=== PATIENT | female | born 1990 | race Caucasian/White ===

== ENCOUNTER 2019-02-28 06:33 | Emergency (ER) | payer BC, MEDICAID ==
[~2019-02-28] VITALS: Ht 170 cm; Wt 90.9 kg
[~2019-02-28 06:33] MED LIST: AMOX500C2 PO; HYDR1TAB PO; SULF1TAB38 PO
--- NOTE | 2019-02-28 07:07 | ED GU-Female ---
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 Nursing Sepsis Screen: No Definite Risk Source: patient Exam Limitations: no limitations History of Present Illness Date Seen by Provider: Feb 28, 2019 Time Seen by Provider: 06:45 Initial Comments Here with report of that she still has tampon inside. States that she did not remove it and she did not notice that it fell out. She is concerned that it is still in her. She is at the end of her menstrual cycle and has very light bleeding currently but denies other problems. Timing/Duration: this morning Severity/Quality: mild Location: vaginal Radiation: none Associated Symptoms: No dysuria, No nausea/vomiting, No urinary frequency Allergies and Home Medications Home Medications Amoxicillin 500 Mg Capsule, 1 EACH PO TID Prescribed by: GALEN TANG on 01/15/09 1307 Hydrocodone Bit/Acetaminophen 1 Each Tablet, 1-2 EACH PO Q4HR PRN Prescribed by: GALEN TANG on 01/15/09 1307 Trimethoprim/Sulfamethoxazole 1 Ea Tablet, 1 EA PO BID Prescribed by: GALEN TANG on 05/07/092056 Patient Home Medication List Home Medication List Reviewed: Yes Review of Systems Review of Systems Constitutional: see HPI; No chills, No fever Respiratory: no symptoms reported Cardiovascular: no symptoms reported Genitourinary: see HPI Past Tndzwgc-Meobnd-Essqns Hx Past Med/Social Hx: Reviewed Nursing Past Med/Soc Hx Patient Social History Alcohol Use: Past History Recreational Drug Use: No Smoking Status: Current Everyday Smoker Type Used: Cigarettes Recent Foreign Travel: No Contact w/Someone Who Travel: No Recent Infectious Disease Expo: No Recent Hopitalizations: No Physical Abuse: No Sexual Abuse: No Mistreated: No Fear: No Seasonal Allergies Seasonal Allergies: No Past Medical History Surgeries: No Respiratory: No Cardiac: No Neurological: No Genitourinary: No Gastrointestinal: No Musculoskeletal: No Endocrine: No HEENT: No Cancer: No Psychosocial: No Integumentary: No Blood Disorders: No Family Medical History Reviewed Nursing Family Hx Physical Exam Vital Signs Vital Signs - First Documented 02/28/19 06:37 Temp 36.5 Pulse 77 Resp 20 B/P (MAP) 125/79 (94) Capillary Refill : Less Than 3 Seconds Height, Weight, BMI Height: '" Weight: lbs. oz. kg; 31.00 BMI Method: General Appearance: WD/WN, no apparent distress Cardiovascular: regular rate, rhythm, no murmur Respiratory: lungs clear, normal breath sounds Gastrointestinal: non tender, soft Pelvic: normal external exam, no cerv. motion tender, no masses; No discharge, No lesions; vaginal bleeding (very mild), other (no foreign body noted or found.) Extremities: non-tender, normal inspection Neurologic/Psychiatric: alert, oriented x 3 Skin: normal color, warm/dry Progress/Results/Core Measures Suspected Sepsis Recent Fever Within 48 Hours: No Infection Criteria Present: None New/Unexplained Altered Menta: No Sepsis Screen: No Definite Risk SIRS Temperature: Pulse: 77 Respiratory Rate: 20 Blood Pressure 125 /79 Mean: 94 Results/Orders Vital Signs/I&O 02/28/19 06:37 Temp 36.5 Pulse 77 Resp 20 B/P (MAP) 125/79 (94) Capillary Refill : Less Than 3 Seconds Blood Pressure Mean: 94 POS Progress Note : Progress Note Seen and evaluated. Pelvic exam done. No foreign body found. Discharged home with return precautions. Patient verbalize understanding instructions and agreement with plan. Departure Impression Primary Impression: Visit for pelvic exam Disposition: 01 HOME, SELF-CARE Condition: Stable Departure-Patient Inst. Decision time for Depature: 07:11 Referrals: NO,LOCAL PHYSICIAN (PCP) Primary Care Physician [facility] Patient Instructions: Acute Pelvic Pain (DC) Add. Discharge Instructions: All discharge instructions reviewed with patient and/or family. Voiced understanding. Is very important that you follow-up with someone for women's health. You do need annual women's health exam or at least an evaluation to determine how often you would require the exam. Return for worse pain, persistent bleeding, weakness, difficulty with urination or other concerns as needed. TREMAINE GROVER MD Feb 28, 2019 07:07 POS
[2019-02-28 07:19] VITALS: BP 125/79
== END 2019-02-28 07:19 | disposition home or self-care (01) ==
LOC: EDUNIT# 06:33 → ER 06:35
DX: N93.9 Abnormal uterine and vaginal bleeding, unspecified (principal); F17.210 Nicotine dependence, cigarettes, uncomplicated
CPT/HCPCS: 99282

== ENCOUNTER 2019-11-11 19:55 | Emergency (ER) | payer MEDICAID ==
[~2019-11-11] VITALS: Ht 170.2 cm; Wt 95.2 kg
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
--- NOTE | 2019-11-11 20:18 | ED GU-Female ---
General Chief Complaint: Female Reproductive Stated Complaint: 12 WKS PREG - LEAKING FLUID Source: patient Exam Limitations: no limitations History of Present Illness Date Seen by Provider: Nov 11, 2019 Time Seen by Provider: 20:16 Initial Comments To ER by private vehicle with reports of leakage of clear vaginal fluid since yesterday. This occurs even at rest. 12 weeks gestation, [id number]. She states this fluid is not mucousy, just water consistency. Notices a wet spot in the chair upon standing. Timing/Duration: constant Severity/Quality: moderate Location: unknown Radiation: none Activities at Onset: none Prior Genitourinary Problems: none Associated Symptoms: denies symptoms Allergies and Home Medications Allergies Coded Allergies: sulfamethoxazole (Verified Allergy, Unknown, 11/11/19) trimethoprim (Verified Allergy, Unknown, 11/11/19) Home Medications Amoxicillin 500 Mg Capsule, 1 EACH PO TID Prescribed by: GALEN TANG on 01/15/09 130 Hydrocodone Bit/Acetaminophen 1 Each Tablet, 1-2 EACH PO Q4HR PRN Prescribed by: GALEN TANG on 01/15/09 1307 Trimethoprim/Sulfamethoxazole 1 Ea Tablet, 1 EA PO BID Prescribed by: GALEN TANG on 05/07/092056 Patient Home Medication List Home Medication List Reviewed: Yes Review of Systems Review of Systems Constitutional: see HPI; No chills, No fever EENTM: see HPI Respiratory: no symptoms reported Cardiovascular: no symptoms reported Genitourinary: no symptoms reported Musculoskeletal: no symptoms reported Skin: no symptoms reported Psychiatric/Neurological: No Symptoms Reported Endocrine: No Symptoms Reported Hematologic/Lymphatic: No Symptoms Reported Past Elcrrsx-Tuztkr-Xnjgux Hx Patient Social History Alcohol Use: Denies Use Recreational Drug Use: No Smoking Status: Former Smoker Type Used: Cigarettes Recent Foreign Travel: No Contact w/Someone Who Travel: No Recent Hopitalizations: No Immunizations Up To Date Tetanus Booster (TDap): Unknown PED Vaccines UTD: Yes Seasonal Allergies Seasonal Allergies: No Past Medical History Surgeries: No Respiratory: No Cardiac: No Neurological: No Genitourinary: No Gastrointestinal: No Musculoskeletal: No Endocrine: No HEENT: No Cancer: No Psychosocial: No Integumentary: No Blood Disorders: No Physical Exam Vital Signs Vital Signs - First Documented 11/11/19 20:01 Pulse 92 Resp 15 B/P (MAP) 116/72 (87) Pulse Ox 97 O2 Delivery Room Air Capillary Refill : Height, Weight, BMI Height: '" Weight: lbs. oz. kg; 31.00 BMI Method: General Appearance: WD/WN, no apparent distress HEENT: PERRL/EOMI, normal ENT inspection Respiratory: normal breath sounds, no respiratory distress, no accessory muscle use Gastrointestinal: normal bowel sounds, non tender, soft Pelvic: other (pelvic with molly rn at bedside. no cmt, no obvious discharge. ) Extremities: normal range of motion, non-tender Neurologic/Psychiatric: alert, normal mood/affect, oriented x 3 Skin: normal color, warm/dry Progress/Results/Core Measures Suspected Sepsis SIRS Temperature: Pulse: Respiratory Rate: Laboratory Tests 11/11/19 20:35: White Blood Count 10.4 Blood Pressure / Mean: Laboratory Tests 11/11/19 20:35: Platelet Count 288 Results/Orders Lab Results Laboratory Tests Test 11/11/19 20:10 11/11/19 20:24 11/11/19 20:35 Range/Units Urine Color YELLOW Urine Clarity CLEAR Urine pH 6.5 5-9 Urine Specific [place] 1.025 H 1.016-1.022 Urine Protein NEGATIVE NEGATIVE Urine Glucose (UA) NEGATIVE NEGATIVE Urine Ketones NEGATIVE NEGATIVE Urine Nitrite NEGATIVE NEGATIVE Urine Bilirubin NEGATIVE NEGATIVE Urine Urobilinogen 0.2 < = 1.0 MG/DL Urine Leukocyte Esterase NEGATIVE NEGATIVE Urine RBC (Auto) NEGATIVE NEGATIVE Urine RBC NONE /HPF Urine WBC 5-10 H /HPF Urine Squamous Epithelial Cells 25-50 H /HPF Urine Crystals NONE /LPF Urine Bacteria LARGE H /HPF Urine Casts NONE /LPF Urine Mucus NEGATIVE /LPF Urine Culture Indicated NO White Blood Count 10.4 4.3-11.0 10^3/uL Red Blood Count 4.15 L 4.35-5.85 10^6/uL Hemoglobin 12.6 11.5-16.0 G/DL Hematocrit 36 35-52 % Mean Corpuscular Volume 87 80-99 FL Mean Corpuscular Hemoglobin 30 25-34 PG Mean Corpuscular Hemoglobin Concent 35 32-36 G/DL Red Cell Distribution Width 13.0 10.0-14.5 % Platelet Count 288 130-400 10^3/uL Mean Platelet Volume 10.7 H 7.4-10.4 FL Neutrophils (%) (Auto) 78 H 42-75 % Lymphocytes (%) (Auto) 16 12-44 % Monocytes (%) (Auto) 5 0-12 % Eosinophils (%) (Auto) 1 0-10 % Basophils (%) (Auto) 0 0-10 % Neutrophils # (Auto) 8.1 H 1.8-7.8 X 10^3 Lymphocytes # (Auto) 1.7 1.0-4.0 X 10^3 Monocytes # (Auto) 0.5 0.0-1.0 X 10^3 Eosinophils # (Auto) 0.1 0.0-0.3 10^3/uL Basophils # (Auto) 0.0 0.0-0.1 10^3/uL My Orders Orders - KAMALJIT JACOBO APRN Cbc With Automated Diff (11/11/19 20:13) Abo Rh Type (11/11/19 20:13) Hcg,Quantitative (11/11/19 20:13) Ua Culture If Indicated (11/11/19 20:13) Wet Prep (11/11/19 20:13) Neisseria Gonorrhea Swab (11/11/19 20:13) Genital Culture (11/11/19 20:13) Chlamydia Trachomatis Swab (11/11/19 20:13) Vital Signs/I&O 11/11/19 20:01 Pulse 92 Resp 15 B/P (MAP) 116/72 (87) Pulse Ox 97 O2 Delivery Room Air Capillary Refill : Departure Communication (Admissions) bedside US done by Dr Lancaster showing gestational age 12 4/7 by crown rump length, HR 150, positive movement. The nitrazine swab done by me during pelvic exam was negative. Impression Primary Impression: UTI (urinary tract infection) Additional Impression: Vaginal discharge Disposition: HOME, SELF-CARE Condition: Stable Departure-Patient Inst. Decision time for Depature: 20:59 Referrals: NO,LOCAL PHYSICIAN (PCP/Family) Primary Care Physician Patient Instructions: Vaginal Discharge in Adults, Urinary Tract Infections in Adults Add. Discharge Instructions: 1. Follow-up with Dr. Jaramillo next week. Antibiotics as directed. Return to ER for any concerns. All discharge instructions reviewed with patient and/or family. Voiced understanding. Scripts Cefuroxime Axetil (Cefuroxime) 250 Mg Tablet 250 MG PO BID, #10 TAB Prov: KAMALJIT JACOBO APRN 11/11/19 KAMALJIT JACOBO APRN Nov 11, 2019 20:18
[2019-11-11 20:23] LABS: BILIRUBIN,URINE NEGATIVE (NEGATIVE); CLARITY,URINE CLEAR; COLOR,URINE YELLOW; GLUCOSE, URINE (UA) NEGATIVE (NEGATIVE); KETONES,URINE NEGATIVE (NEGATIVE); LEUKOCYTE ESTERASE ,URINE NEGATIVE (NEGATIVE); NITRITE,URINE NEGATIVE (NEGATIVE); PH,URINE 6.5 (5-9); PROTEIN,URINE NEGATIVE (NEGATIVE)
[2019-11-11 20:35] LABS: BACTERIA,URINE LARGE /HPF; SQUAMOUS EPITHELIAL CELL,UR 25-50 /HPF
[2019-11-11 20:41] LABS: BASOPHILS % (AUTO) 0 % (0-10); EOSINOPHILS # (AUTO) 0.1 10^3/uL (0.0-0.3); EOSINOPHILS % (AUTO) 1 % (0-10); HEMATOCRIT 36 % (35-52); HEMOGLOBIN 12.6 G/DL (11.5-16.0); LYMPHOCYTES # (AUTO) 1.7 X 10^3 (1.0-4.0); LYMPHOCYTES % (AUTO) 16 % (12-44); MEAN CORPUSCULAR HEMOGLOBIN 30 PG (25-34); MEAN CORPUSCULAR HGB CONC 35 G/DL (32-36); MEAN CORPUSCULAR VOLUME 87 FL (80-99); MEAN PLATELET VOLUME 10.7 FL (7.4-10.4); MONOCYTES # (AUTO) 0.5 X 10^3 (0.0-1.0); MONOCYTES % (AUTO) 5 % (0-12); NEUTROPHILS # (AUTO) 8.1 X 10^3 (1.8-7.8); NEUTROPHILS % (AUTO) 78 % (42-75); PLATELET COUNT 288 10^3/uL (130-400); WHITE BLOOD COUNT 10.4 10^3/uL (4.3-11.0)
[2019-11-11] MEDS ORDERED: CEFU250T80 PO (21:00)
[2019-11-11 21:49] VITALS: BP 115/75
== END 2019-11-11 21:49 | disposition home or self-care (01) ==
LOC: EDUNIT# 19:55 → ER 19:57
DX: O23.41 Unspecified infection of urinary tract in pregnancy, first trimester (principal); O99.89 Other specified diseases and conditions complicating pregnancy, childbirth and the puerperium; N89.8 Other specified noninflammatory disorders of vagina; Z3A.12 12 weeks gestation of pregnancy; Z88.2 Allergy status to sulfonamides; Z88.1 Allergy status to other antibiotic agents; Z87.891 Personal history of nicotine dependence
CPT/HCPCS: 36415; 81000; 84702; 85025; 86900; 86901; 87070; 87205; 87210; 87491; 87591

== ENCOUNTER 2020-02-14 15:51 | Observation (INO) | payer MEDICAID ==
[~2020-02-14] VITALS: Ht 170.2 cm; Wt 97.3 kg
[~2020-02-14 15:51] MED LIST changes: +CEFU250T80 PO
[2020-02-14] MEDS ORDERED: ONDANSETRON 4 MG/2 ML (SDV) Z0FRAN IV PRN (16:30)
[2020-02-14 17:18] VITALS: BP 126/60
--- NOTE | 2020-02-14 17:18 | NUR ---
MAYLIN SAUNDERS presented to unit via cart from ED,with c/o N/V/D, Fever, SOA. MAYLIN SAUNDERS weighed, gowned, voided, and to bed. EFHM and TOCO applied, VS taken. MAYLIN SAUNDERS oriented to bed controls, call light, TV, heat, and A/C controls.
--- NOTE | 2020-02-14 17:44 | NUR ---
FHT Doppler at 155-160 bpm. +FM heard.
[2020-02-14] MEDS: LACTATED RINGERS 1,000 ML IV SCH (17:53)
[2020-02-14 18:20] LABS: BASOPHILS % (AUTO) 0 % (0-10); EOSINOPHILS % (AUTO) 0 % (0-10); HEMATOCRIT 29 % (35-52); HEMOGLOBIN 9.8 g/dL (11.5-16.0); LYMPHOCYTES # (AUTO) 0.5 10^3/uL (1.0-4.0); LYMPHOCYTES % (AUTO) 4 % (12-44); MEAN CORPUSCULAR HEMOGLOBIN 30 pg (25-34); MEAN CORPUSCULAR HGB CONC 33 g/dL (32-36); MEAN CORPUSCULAR VOLUME 91 fL (80-99); MEAN PLATELET VOLUME 11.3 fL (9.0-12.2); MONOCYTES # (AUTO) 0.7 10^3/uL (0.0-1.0); MONOCYTES % (AUTO) 5 % (0-12); NEUTROPHILS # (AUTO) 11.7 10^3/uL (1.8-7.8); NEUTROPHILS % (AUTO) 91 % (42-75); PLATELET COUNT 231 10^3/uL (130-400); WHITE BLOOD COUNT 12.9 10^3/uL (4.3-11.0)
[2020-02-14 18:32] LABS: PROTHROMBIN TIME PATIENT 13.4 SEC (12.2-14.7)
[2020-02-14 18:32] LABS: ALBUMIN 3.4 GM/DL (3.2-4.5); CHLORIDE 102 MMOL/L (98-107); POTASSIUM 3.4 MMOL/L (3.6-5.0); SODIUM 135 MMOL/L (135-145)
[2020-02-14 18:33] LABS: CALCIUM 8.4 MG/DL (8.5-10.1)
[2020-02-14 18:35] LABS: GLUCOSE 87 MG/DL (70-105); TOTAL PROTEIN 6.3 GM/DL (6.4-8.2)
[2020-02-14 18:36] LABS: BILIRUBIN,TOTAL 0.4 MG/DL (0.1-1.0); CARBON DIOXIDE 20 MMOL/L (21-32)
[2020-02-14 18:38] LABS: ALKALINE PHOSPHATASE 57 U/L (40-136); CREATININE SERUM 0.46 MG/DL (0.60-1.30); GFR ESTIMATED > 60
[2020-02-14 18:39] LABS: BUN/CREATININE RATIO 7
[2020-02-14 18:41] LABS: ALANINE AMINOTRANSFERASE 25 U/L (0-55)
--- NOTE | 2020-02-14 19:35 | NUR ---
Report to Shar Onofre RN.
[2020-02-14 20:00] VITALS: BP 124/66
[2020-02-14] MEDS: ACETAMINOPHEN 325 MG TABLET PO PRN (20:18)
--- NOTE | 2020-02-14 20:20 | NUR ---
Pt sitting up in bed, coughing. pt c/o headache. assessment completed. Tylenol given. ice water and crackers provided. Pt denies any further needs. Will continue to monitor.
[2020-02-14 20:30] LABS: BILIRUBIN,URINE NEGATIVE (NEGATIVE); CLARITY,URINE CLEAR; COLOR,URINE YELLOW; GLUCOSE, URINE (UA) NEGATIVE (NEGATIVE); KETONES,URINE 2+ (NEGATIVE); LEUKOCYTE ESTERASE ,URINE TRACE (NEGATIVE); NITRITE,URINE NEGATIVE (NEGATIVE); PH,URINE 6.5 (5-9); PROTEIN,URINE NEGATIVE (NEGATIVE)
[2020-02-14 20:46] LABS: AMORPHOUS SEDIMENT,UR FEW AMOR URATES /LPF; BACTERIA,URINE FEW /HPF; WBC,URINE 0-2 /HPF
[2020-02-14 20:50] LABS: LYMPHOCYTES % (MANUAL) 3 %; MONOCYTES % (MANUAL) 3 %; NEUTROPHILS % (MANUAL) 94 %; RBC MORPH NORMAL
[2020-02-14 20:57] LABS: AMPHETAMINE SCREEN, URINE NEGATIVE (NEGATIVE); BARBITURATE SCREEN URINE NEGATIVE (NEGATIVE); BENZODIAZEPINES SCREEN URINE NEGATIVE (NEGATIVE); CANNABINOID SCREEN, URINE POSITIVE (NEGATIVE); COCAINE SCREEN URINE NEGATIVE (NEGATIVE); METHADONE STAT NEGATIVE (NEGATIVE); METHAMPHETAMINE SCREEN URINE S NEGATIVE (NEGATIVE); OPIATE SCREEN URINE NEGATIVE (NEGATIVE); OXYCODONE STAT NEGATIVE (NEGATIVE); PROPOXYPHENE STAT NEGATIVE (NEGATIVE); TRICYCLIC ANTIDEPRESSANTS SCRE NEGATIVE (NEGATIVE)
--- NOTE | 2020-02-14 21:00 | NUR ---
fht obtain. 167 left lower quadrant.
--- NOTE | 2020-02-14 22:00 | NUR ---
Rt has not arrived. Notified of rt order. States they will be around soon.
[2020-02-14] MEDS ORDERED: guaiFENesin/DM (ROBITUSSIN DM) 10 ML UDC PO PRN (23:15)
[2020-02-14] MEDS ORDERED: guaiFENesin (MUCINEX) 600 MG TAB PO ONE (23:17)
[2020-02-14] MEDS ORDERED: guaiFENesin/DM (ROBITUSSIN DM) 10 ML UDC ONE (23:27)
[2020-02-15] VITALS (7 sets, daily range): BP systolic 106–123; BP diastolic 59–93
--- NOTE | 2020-02-15 00:19 | NUR ---
PT C/O headache and chills. temp 99.7.
[2020-02-15] MEDS: ACETAMINOPHEN 325 MG TABLET PO PRN ×4 (00:23→21:27)
--- NOTE | 2020-02-15 01:08 | NUR ---
Called RT again concerning tx. States they will be up shortly
[2020-02-15] MEDS ORDERED: RX-ALBUTEROL INHALER (VENTOLIN HFA) 18 GM IH ONE (02:18)
[2020-02-15] MEDS ORDERED: RT-ALBUTEROL INHALER HFA (VENTOLIN HFA) 18 GM IH PRN ×2 (02:45→14:45)
--- NOTE | 2020-02-15 04:22 | NUR ---
Pt states she is starting to feel hot and c/o headache, tylenol given.
[2020-02-15] MEDS: LACTATED RINGERS 1,000 ML IV SCH (05:27)
--- NOTE | 2020-02-15 08:00 | NUR ---
pt reports movement this am
[2020-02-15 08:37] LABS: HEMOGLOBIN 10.8 g/dL (11.5-16.0); MEAN PLATELET VOLUME 11.1 fL (9.0-12.2); WHITE BLOOD COUNT 8.2 10^3/uL (4.3-11.0)
--- NOTE | 2020-02-15 08:40 | Diagnostic Imaging Report ---
INDICATION: Cough and fever. AP view of the chest is obtained. COMPARISON: No previous study is available for comparison at this time. FINDINGS: Heart size and pulmonary vasculature are within normal limits, and the lungs are clear, bilaterally. IMPRESSION: Unremarkable chest. Dictated by: Dictated on workstation # [id number]
[2020-02-15 08:58] LABS: BUN/CREATININE RATIO 4; CALCIUM 8.3 MG/DL (8.5-10.1); CARBON DIOXIDE 21 MMOL/L (21-32); CHLORIDE 104 MMOL/L (98-107); GFR ESTIMATED > 60; GLUCOSE 110 MG/DL (70-105); POTASSIUM 3.1 MMOL/L (3.6-5.0); SODIUM 135 MMOL/L (135-145)
--- NOTE | 2020-02-15 10:48 | NUR ---
Dr Messer to see patient and review plan of care.
--- NOTE | 2020-02-15 11:25 | NUR ---
pt resting/sleeping before vitals obtained. denies pain.
--- NOTE | 2020-02-15 16:40 | NUR ---
fresh ice to water pitcher at bedside. pt requests to shower. towels and gown to bathroom. pt denies further needs.
--- NOTE | 2020-02-15 17:55 | NUR ---
dinner tray to bedside table. pt reports having showered. linens changed. pt sitting up to eat dinner tray. denies needs.
--- NOTE | 2020-02-15 20:35 | History & Physical ---
HPI History of Present Illness: at 26 weeks presented to walk-in care at [facility] on 02/13 due to sore throat, cough, burning nose and throat, shortness of breath that started the night of 02/12. She had nausea and vomiting first and thought she might have eaten something wrong, but all the other symptoms shortly followed along with headache and diarrhea. She admits loss of sense of taste and smell as well. No known COVID exposure. She had seen Dr. Mcgregor for Ob care early in , and when he left [facility], she planned to move to [place] and was there for one visit and had US she reports that showed a baby girl. She returned to [place], but hadn't re-established ob care. In clinic, she had SpO2 of 88% initially but improved to 98% after she had a coughing fit. She was having significant conversational dyspnea as well and could not keep anything down and had rapid heart rate and dizziness, so she was directly admitted. She had negative rapid COVID (Vogel ID now) and negative influenza as well. She states she is feeling better today, but still vomited after breakfast. Albuterol is helping her breathing a lot and she has not required supplemental oxygen. Source: patient Date seen by provider: Feb 15, 2020 Time Seen by Provider: 10:30 Attending Physician Rosa Messer MD PCP No,Local Physician Consult Date of Admission Feb 14, 2020 at 17:09 Home Medications Home Medications Reviewed patient Home Medication Reconciliation performed by pharmacy medication reconciliations customer account technician and/or nursing. Patients Allergies have been reviewed. Allergies Coded Allergies: sulfamethoxazole (Verified Allergy, Unknown, 11/11/19) trimethoprim (Verified Allergy, Unknown, 11/11/19) [id number] Hx Patient Social History Alcohol Use: Denies Use Recreational Drug Use: No Smoking Status: Current Everyday Smoker Type Used: Cigarettes 2nd Hand Smoke Exposure: Yes Recent Hopitalizations: No Immunizations Up To Date Tetanus Booster (TDap): Unknown Past Medical History PMHx: Depression Anxiety PTSD Family Medical History Significant Family History: No Pertinent Family Hx Review of Systems ([facility]) Constitutional: fever, malaise EENTM: nose congestion, nose pain, throat pain Respiratory: cough, short of breath Cardiovascular: No chest pain Gastrointestinal: No abdominal pain, No constipation; diarrhea, nausea, vomiting Genitourinary: No dysuria Musculoskeletal: no symptoms reported Skin: no symptoms reported Psychiatric/Neurological: No Symptoms Reported Reviewed Test Results Reviewed Test Results Lab Laboratory Tests Test 02/14/20 07:59 02/14/20 18:05 02/14/20 18:20 02/14/20 20:15 Range/Units Prothrombin Time 13.4 12.2-14.7 SEC INR Comment 1.0 0.8-1.4 Activated Partial Thromboplast Time 30 24-35 SEC White Blood Count 12.9 H 4.3-11.0 10^3/uL Red Blood Count 3.23 L 3.80-5.11 10^6/uL Hemoglobin 9.8 L 11.5-16.0 g/dL Hematocrit 29 L 35-52 % Mean Corpuscular Volume 91 80-99 fL Mean Corpuscular Hemoglobin 30 25-34 pg Mean Corpuscular Hemoglobin Concent 33 32-36 g/dL Red Cell Distribution Width 13.5 10.0-14.5 % Platelet Count 231 130-400 10^3/uL Mean Platelet Volume 11.3 9.0-12.2 fL Immature Granulocyte % (Auto) 1 % Neutrophils (%) (Auto) 91 H 42-75 % Lymphocytes (%) (Auto) 4 L 12-44 % Monocytes (%) (Auto) 5 0-12 % Eosinophils (%) (Auto) 0 0-10 % Basophils (%) (Auto) 0 0-10 % Neutrophils # (Auto) 11.7 H 1.8-7.8 10^3/uL Lymphocytes # (Auto) 0.5 L 1.0-4.0 10^3/uL Monocytes # (Auto) 0.7 0.0-1.0 10^3/uL Eosinophils # (Auto) 0.0 0.0-0.3 10^3/uL Basophils # (Auto) 0.0 0.0-0.1 10^3/uL Immature Granulocyte # (Auto) 0.1 0.0-0.1 10^3/uL Neutrophils % (Manual) 94 % Lymphocytes % (Manual) 3 % Monocytes % (Manual) 3 % Blood Morphology Comment NORMAL Sodium Level 135 135-145 MMOL/L Potassium Level 3.4 L 3.6-5.0 MMOL/L Chloride Level 102 98-107 MMOL/L Carbon Dioxide Level 20 L 21-32 MMOL/L Anion Gap 13 5-14 MMOL/L Blood Urea Nitrogen 3 L 7-18 MG/DL Creatinine 0.46 L 0.60-1.30 MG/DL Estimat Glomerular Filtration Rate > 60 BUN/Creatinine Ratio 7 Glucose Level 87 70-105 MG/DL Lactic Acid Level 1.26 0.50-2.00 MMOL/L Calcium Level 8.4 L 8.5-10.1 MG/DL Corrected Calcium 8.9 8.5-10.1 MG/DL Total Bilirubin 0.4 0.1-1.0 MG/DL Aspartate Amino Transf (AST/SGOT) 30 5-34 U/L Alanine Aminotransferase (ALT/SGPT) 25 0-55 U/L Alkaline Phosphatase 57 40-136 U/L Lactate Dehydrogenase 140 125-220 U/L C-Reactive Protein High Sensitivity 1.75 H 0.00-0.50 MG/DL Total Protein 6.3 L 6.4-8.2 GM/DL Albumin 3.4 3.2-4.5 GM/DL Urine Color YELLOW Urine Clarity CLEAR Urine pH 6.5 5-9 Urine Specific [place] 1.015 L 1.016-1.022 Urine Protein NEGATIVE NEGATIVE Urine Glucose (UA) NEGATIVE NEGATIVE Urine Ketones 2+ H NEGATIVE Urine Nitrite NEGATIVE NEGATIVE Urine Bilirubin NEGATIVE NEGATIVE Urine Urobilinogen 0.2 < = 1.0 MG/DL Urine Leukocyte Esterase TRACE H NEGATIVE Urine RBC (Auto) NEGATIVE NEGATIVE Urine RBC NONE /HPF Urine WBC 0-2 /HPF Urine Crystals PRESENT H /LPF Urine Amorphous Sediment FEW TAVO URATES H /LPF Urine Bacteria FEW H /HPF Urine Casts NONE /LPF Urine Mucus NEGATIVE /LPF Urine Culture Indicated YES Urine Opiates Screen NEGATIVE NEGATIVE Urine Oxycodone Screen NEGATIVE NEGATIVE Urine Methadone Screen NEGATIVE NEGATIVE Urine Propoxyphene Screen NEGATIVE NEGATIVE Urine Barbiturates Screen NEGATIVE NEGATIVE Ur Tricyclic Antidepressants Screen NEGATIVE NEGATIVE Urine Phencyclidine Screen NEGATIVE NEGATIVE Urine Amphetamines Screen NEGATIVE NEGATIVE Urine Methamphetamines Screen NEGATIVE NEGATIVE Urine Benzodiazepines Screen NEGATIVE NEGATIVE Urine Cocaine Screen NEGATIVE NEGATIVE Urine Cannabinoids Screen POSITIVE H NEGATIVE Test 02/15/20 08:26 Range/Units White Blood Count 8.2 4.3-11.0 10^3/uL Red Blood Count 3.59 L 3.80-5.11 10^6/uL Hemoglobin 10.8 L 11.5-16.0 g/dL Hematocrit 32 L 35-52 % Mean Corpuscular Volume 90 80-99 fL Mean Corpuscular Hemoglobin 30 25-34 pg Mean Corpuscular Hemoglobin Concent 33 32-36 g/dL Red Cell Distribution Width 13.6 10.0-14.5 % Platelet Count 197 130-400 10^3/uL Mean Platelet Volume 11.1 9.0-12.2 fL Sodium Level 135 135-145 MMOL/L Potassium Level 3.1 L 3.6-5.0 MMOL/L Chloride Level 104 98-107 MMOL/L Carbon Dioxide Level 21 21-32 MMOL/L Anion Gap 10 5-14 MMOL/L Blood Urea Nitrogen 2 L 7-18 MG/DL Creatinine 0.50 L 0.60-1.30 MG/DL Estimat Glomerular Filtration Rate > 60 BUN/Creatinine Ratio 4 Glucose Level 110 H 70-105 MG/DL Calcium Level 8.3 L 8.5-10.1 MG/DL Radiology CXR 02/15/20 unremarkable Physical Exam-([facility]) Physical Exam Vital Signs VS - Last 72 Hours, by Label 02/14/20 02/14/20 02/14/20 02/14/20 17:18 17:18 17:59 20:00 Temp 37.3 37.3 38.1 Pulse 114 114 123 Resp 18 18 20 B/P (MAP) 124/66 (85) Pulse Ox 97 97 98 96 O2 Delivery Room Air Room Air Room Air Room Air 02/15/20 02/15/20 02/15/20 02/15/20 00:15 01:11 02:23 02:29 Temp 37.6 Pulse 101 96 Resp 20 B/P (MAP) 111/62 (78) Pulse Ox 95 93 96 O2 Delivery Room Air Room Air Room Air FiO2 100 02/15/20 02/15/20 02/15/20 02/15/20 04:22 07:49 07:56 11:36 Temp 37.4 36.2 37.0 Pulse 106 91 87 Resp 20 20 20 B/P (MAP) 123/61 (81) 110/93 (99) 110/59 (76) Pulse Ox 97 97 97 95 O2 Delivery Room Air Room Air Room Air Room Air 02/15/20 02/15/20 14:49 16:30 Temp 37.0 Pulse 89 Resp 18 B/P (MAP) 111/64 (80) Pulse Ox 94 97 O2 Delivery Room Air Room Air Capillary Refill : Less Than 3 Seconds General Appearance: WD/WN, other (appears mildly ill/uncomfortable) Respiratory: no respiratory distress, no accessory muscle use, other (mild ronchi throughout, significant improvement from yesterday) Cardiovascular: no murmur, tachycardia Gastrointestinal: normal bowel sounds, non tender Extremities: no pedal edema Neurologic/Psychiatric: alert, other (flat affect) Skin: normal color, warm/dry Assessment/Plan Assessment/Plan Admission Status: Observation (1) Fever Status: Acute Assessment & Plan: Suspect possible COVID19, PCR pending (rapid negative, but symptoms consistent), acetaminophen as needed. No evidence of UTI or pneumonia or uterine infection. Qualifiers: (2) Vomiting Status: Acute Assessment & Plan: Ondansetron as needed Qualifiers: (3) 26 weeks gestation of Status: Acute Assessment & Plan: Due to gestation and body habitus, unable to complete NST, continue to check heart tones each shift, normal so far. (4) Cough Status: Acute Assessment & Plan: Robitussin for symptoms. (5) Shortness of breath Status: Acute Assessment & Plan: Suspect viral lower respiratory infection, improved symptoms with albuterol, not requiring supplemental oxygen. Awaiting COVID results. ROSA MESSER MD Feb 15, 2020 20:34
[2020-02-15] MEDS ORDERED: ONDANSETRON 4 MG (ZOFRAN) ORAL DISSOLVE TAB PO PRN (20:45)
[2020-02-15] MEDS ORDERED: KCL 20 MEQ TAB (K-DUR) PO ONE (20:45)
--- NOTE | 2020-02-15 21:25 | NUR ---
To room for assessment. T 150. Fresh ice water given to pt. Pt denies pain or any needs at this time. Addendum: 02/15/20 at 2147 by GLADIS ROCK RN VSKathy
[2020-02-16 01:15] VITALS: BP 108/58
[2020-02-16] MEDS: ACETAMINOPHEN 325 MG TABLET PO PRN (01:15)
[2020-02-16 05:22] VITALS: BP 103/55
[2020-02-16 06:02] LABS: HEMOGLOBIN 10.6 g/dL (11.5-16.0); MEAN PLATELET VOLUME 11.2 fL (9.0-12.2); WHITE BLOOD COUNT 6.4 10^3/uL (4.3-11.0)
[2020-02-16 06:18] LABS: CHLORIDE 106 MMOL/L (98-107); POTASSIUM 3.4 MMOL/L (3.6-5.0); SODIUM 137 MMOL/L (135-145)
[2020-02-16 06:20] LABS: CALCIUM 8.2 MG/DL (8.5-10.1); GLUCOSE 79 MG/DL (70-105)
[2020-02-16 06:22] LABS: CARBON DIOXIDE 20 MMOL/L (21-32)
[2020-02-16 06:24] LABS: CREATININE SERUM 0.44 MG/DL (0.60-1.30); GFR ESTIMATED > 60
[2020-02-16 06:25] LABS: BUN/CREATININE RATIO 7
[2020-02-16] MEDS ORDERED: KCL 20 MEQ TAB (K-DUR) PO ONE (07:00)
--- NOTE | 2020-02-16 07:00 | NUR ---
Report from Robert baxter.
[2020-02-16] MEDS ORDERED: PREN-142 PO (07:02)
[2020-02-16] MEDS ORDERED: ONDA4TAB11 PO (07:05)
[2020-02-16] MEDS ORDERED: ALBU18HF2 IH (07:05)
[2020-02-16] MEDS ORDERED: GUAI5SYR PO (07:05)
--- NOTE | 2020-02-16 08:50 | NUR ---
Initial assessment completed, vss, see interventions for detailed assessments, plan of care reviewed with pt, no questions noted, pt reports feeling much better and requesting d/c home today. FHT dopplered at 127. Pt reports feeling movement. Will monitor closely.
[2020-02-16 08:54] VITALS: BP 115/65
--- NOTE | 2020-02-16 09:30 | NUR ---
MAYLIN SAUNDERS demonstrates understanding of discharge instructions and accurately returns instructions upon questioning. Copy of Post-Discharge Instructions given to pt. MAYLIN SAUNDERS is able to manage continuing needs after discharge. Patients belongings returned to .
--- NOTE | 2020-02-16 09:45 | NUR ---
Patient discharged from 3302-1 on 02/16/20 at 0945. MAYLIN SAUNDERS left floor via [ambulation], accompanied by [staff]. Pt taken home by care van. Will follow up with DR Messer in clinic in one week.
--- NOTE | 2020-02-16 10:53 | Discharge Summary ---
Discharge Summary Hospital Course Problems/Diagnosis: (1) Fever Status: Acute Assessment & Plan: Suspect possible COVID19, rapid and PCR negative, but symptoms consistent, maintained airborne precautions inpatient. Acetaminophen as needed. No evidence of UTI or pneumonia or uterine infection. Qualifiers: (2) Vomiting Status: Resolved Resolution Date/Time: 02/16/20 @ 10:51 Assessment & Plan: Ondansetron as needed Qualifiers: (3) 26 weeks gestation of Status: Acute Assessment & Plan: Due to gestation and body habitus, unable to complete NST, continue to check heart tones each shift, normal throughout stay. (4) Cough Status: Acute Assessment & Plan: Robitussin for symptoms. (5) Shortness of breath Status: Acute Assessment & Plan: Suspect viral lower respiratory infection, improved symptoms with albuterol, not requiring supplemental oxygen. Discharged with albuterol inhaler script. Hospital Course Date of Admission: Feb 14, 2020 at 17:09 Admission Diagnosis : Family Physician/Provider: [place],Local Physician Date of Discharge: 02/16/20 Discharge Diagnosis: See problem list Hospital Course: See problem list Labs and Pending Lab Test: Laboratory Tests 02/16/20 05:51: White Blood Count 6.4, Red Blood Count 3.52L, Hemoglobin 10.6L, Hematocrit 32L, Mean Corpuscular Volume 92, Mean Corpuscular Hemoglobin 30, Mean Corpuscular Hemoglobin Concent 33, Red Cell Distribution Width 13.8, Platelet Count 193, Mean Platelet Volume 11.2, Sodium Level 137, Potassium Level 3.4L, Chloride Level 106, Carbon Dioxide Level 20L, Anion Gap 11, Blood Urea Nitrogen 3L, Creatinine 0.44L, Estimat Glomerular Filtration Rate > 60, BUN/Creatinine Ratio 7, Glucose Level 79, Calcium Level 8.2L Microbiology 02/14/20 Urine Culture - Final, Complete >=3 Gram Positive Isolates 02/14/20 Blood Culture - Preliminary, Resulted No growth Home Meds Active Ondansetron Odt (Ondansetron) 4 Mg Tab.rapdis 4 Mg PO Q6H PRN Guaifenesin Dm Syrup (Guaifenesin/Dextromethorphan) 5 Ml Syrup 10 Ml PO Q4H PRN Ventolin Hfa (Albuterol Sulfate) 18 Gm Hfa.aer.ad 2 Puff IH Q4H PRN Reported Vitamin Tablet ( Vit No.124/Iron/FA) 1 Each Tablet 1 Each PO DA ELIZABETH Assessment/Pt DC Instructions Follow up with Dr. Messer in a week, someone from [facility] will call with an appointment time. Discharge Diet: No Restrictions Activity as Tolerated: Yes Discharge Physical Examination Allergies: Coded Allergies: sulfamethoxazole (Verified Allergy, Unknown, 11/11/19) trimethoprim (Verified Allergy, Unknown, 11/11/19) General Appearance: No Apparent Distress, WD/WN Respiratory: Lungs Clear, Normal Breath Sounds Cardiovascular: Regular Rate, Rhythm, No Murmur Skin: Normal Color, Warm/Dry Neurologic/Psychiatric: Alert, Normal Mood/Affect ROSA MESSER MD Feb 16, 2020 10:53
== END 2020-02-16 09:45 | disposition home or self-care (01) ==
LOC: LDRP 17:09 → UNDOADMOB 17:09 → LDRP 17:18 → UNDODISOB 02-16 09:45
PROVIDERS: ADMIT Family Medicine; ATTEND Family Medicine
DX: R50.9 Fever, unspecified (principal); R11.10 Vomiting, unspecified; R05 Cough; R06.02 Shortness of breath; F17.210 Nicotine dependence, cigarettes, uncomplicated; F41.9 Anxiety disorder, unspecified; F32.9 Major depressive disorder, single episode, unspecified; F43.10 Post-traumatic stress disorder, unspecified; Z20.828 Contact with and (suspected) exposure to other viral communicable diseases; Z88.2 Allergy status to sulfonamides; Z88.1 Allergy status to other antibiotic agents
CPT/HCPCS: 71045; 80048 ×2; 80053; 80306; 81000; 82728; 83605; 83615; 85007; 85027 ×3; 85610; 85730; 86141; 87040; 87077; 87088; 87185; 94640; 96361 ×2; 96374; G0378; G0379; U0002; 36415; 87635; 99211

== ENCOUNTER 2020-02-14 16:59 | Emergency (ER) | payer MEDICAID ==
--- NOTE | 2020-02-14 18:26 | NUR ---
PT TAKEN TO OB
== END 2020-02-14 17:20 | disposition other institution (70) ==
LOC: EDUNIT# 16:59 → ER 17:02
DX: R05 Cough (principal); R50.9 Fever, unspecified; Z20.828 Contact with and (suspected) exposure to other viral communicable diseases

== ENCOUNTER 2020-05-20 19:22 | Inpatient (IN) | payer MEDICAID ==
[~2020-05-20] VITALS: Ht 170 cm; Wt 101.0 kg
[~2020-05-20 19:22] MED LIST changes: +ALBU18HF2 IH; +GUAI5SYR PO; +ONDA4TAB11 PO; +PREN-142 PO
[2020-05-20 19:55] VITALS: BP 113/64
[2020-05-20 20:08] VITALS: BP 113/64
[2020-05-20] MEDS ORDERED: LACTATED RINGERS 1,000 ML IV ONE (20:15)
[2020-05-20] MEDS ORDERED: MISOPROSTOL 100 MCG (CYTOTEC) TAB PO ONE (20:15)
[2020-05-20] MEDS: D5 LR IV SOLUTION 1,000 ML IV SCH (20:33)
[2020-05-20 20:46] LABS: BASOPHILS % (AUTO) 0 % (0-10); EOSINOPHILS # (AUTO) 0.1 10^3/uL (0.0-0.3); EOSINOPHILS % (AUTO) 1 % (0-10); HEMATOCRIT 36 % (35-52); HEMOGLOBIN 11.8 g/dL (11.5-16.0); LYMPHOCYTES # (AUTO) 1.5 10^3/uL (1.0-4.0); LYMPHOCYTES % (AUTO) 14 % (12-44); MEAN CORPUSCULAR HEMOGLOBIN 29 pg (25-34); MEAN CORPUSCULAR HGB CONC 33 g/dL (32-36); MEAN CORPUSCULAR VOLUME 88 fL (80-99); MEAN PLATELET VOLUME 11.9 fL (9.0-12.2); MONOCYTES # (AUTO) 0.6 10^3/uL (0.0-1.0); MONOCYTES % (AUTO) 6 % (0-12); NEUTROPHILS # (AUTO) 8.7 10^3/uL (1.8-7.8); NEUTROPHILS % (AUTO) 79 % (42-75); PLATELET COUNT 273 10^3/uL (130-400)
[2020-05-20 20:54] LABS: BILIRUBIN,URINE NEGATIVE (NEGATIVE); CLARITY,URINE CLOUDY; COLOR,URINE YELLOW; GLUCOSE, URINE (UA) NEGATIVE (NEGATIVE); KETONES,URINE NEGATIVE (NEGATIVE); LEUKOCYTE ESTERASE ,URINE 1+ (NEGATIVE); NITRITE,URINE NEGATIVE (NEGATIVE); PROTEIN,URINE NEGATIVE (NEGATIVE)
[2020-05-20 21:03] LABS: BACTERIA,URINE LARGE /HPF; SQUAMOUS EPITHELIAL CELL,UR >50 /HPF; WBC,URINE 50-100 /HPF
[2020-05-20] MEDS ORDERED: ZOLPIDEM 5 MG (AMBIEN) TAB ONE (22:03)
[2020-05-20 22:15] VITALS: BP 111/59
[2020-05-20] MEDS ORDERED: ZOLPIDEM 5 MG (AMBIEN) TAB PO ONE (22:15)
[2020-05-20 23:15] VITALS: BP 111/65
[2020-05-21] VITALS (55 sets, daily range): BP systolic 87–134; BP diastolic 47–78
[2020-05-21] MEDS ORDERED: MISOPROSTOL 100 MCG (CYTOTEC) TAB PO SCH (00:15)
[2020-05-21] MEDS: D5 LR IV SOLUTION 1,000 ML IV SCH ×2 (03:39→11:43)
--- NOTE | 2020-05-21 06:44 | History & Physical-OB ---
OB - Chief Complaint & HPI Date/Time Date of Admission: Date of Admission: May 20, 2020 at 19:22 Date seen by a Provider: May 21, 2020 Time Seen by a Provider: 06:25 Chief Complaint/History OB-Reason for Admission/Chief: Induction of Labor Hx : 3 Hx Para: 2 Expected Date of Delivery: May 22, 2020 Gestational Age in Weeks: 39 Gestational Age in Days: 5 Admission Nurse Assessment Rev: Yes History of Labs GBS negative Allergies and Home Medications Allergies Coded Allergies: sulfamethoxazole (Verified Allergy, Unknown, 11/11/19) trimethoprim (Verified Allergy, Unknown, 11/11/19) Home Medications Albuterol Sulfate 18 Gm Hfa.aer.ad, 2 PUFF IH Q4H PRN for SHORTNESS OF BREATH Prescribed by: ROSA CASEY on 02/16/20 0705 Guaifenesin/Dextromethorphan 5 Ml Syrup, 10 ML PO Q4H PRN for COUGH Prescribed by: ROSA CASEY on 02/16/20 0705 Ondansetron 4 Mg Tab.rapdis, 4 MG PO Q6H PRN for NAUSEA/VOMITING-1ST LINE Prescribed by: ROSA CASEY on 02/16/20 0705 Vit No.124/Iron/FA 1 Each Tablet, 1 EACH PO DAILY, (Reported) Patient Home Medication List Home Medication List Reviewed: Yes OB - History Hx of Present Care: Yes Ultrasounds: Normal mid trimester US Obstetrical Complications: None Medical Complications: None Patient Past Medical History PMHx: Depression Anxiety PTSD Social History/Family History 2nd Hand Smoke Exposure: Yes Immunizations Hepatitis B: Yes Tetanus Booster (TDap): Unknown OB - Admission Exam Physical Exam Vitals: Vital Signs 05/20/20 05/21/20 05/21/20 20:08 01:15 05:15 Temp 36.3 Pulse 96 Resp 18 B/P (MAP) 102/62 (75) Pulse Ox 98 O2 Delivery Room Air HEENT: Moist Membranes Heart: Rhythm Normal Lungs: Clear Abdomen: Gravid Cervical Dilatation: 1cm Effacement: 50% Station: Ballotable Membranes: Intact Heart Rate: 140's Accelerations: Accelerations Present Decelerations: No Decelerations Short Term Variability: Present Staff Sonographer Variability: Average (6-25) Contractions on Admission: >10 Minutes Apart (on admission) Intensity: Mild Venegas Scoring Tool (Modified) Dilation (cm): 1-2cm (1) Effacement (%): 31-51% (1) Descent/Station: -3 (0) Cervix Consistency: Medium(1) Cervix Position: Posterior (0) Add 1 point for: Each previous vaginal delivery (1) Venegas Score: 5 Labs Laboratory Tests Test 05/20/20 20:30 05/20/20 20:40 Range/Units White Blood Count 11.0 4.3-11.0 10^3/uL Red Blood Count 4.03 3.80-5.11 10^6/uL Hemoglobin 11.8 11.5-16.0 g/dL Hematocrit 36 35-52 % Mean Corpuscular Volume 88 80-99 fL Mean Corpuscular Hemoglobin 29 25-34 pg Mean Corpuscular Hemoglobin Concent 33 32-36 g/dL Red Cell Distribution Width 14.1 10.0-14.5 % Platelet Count 273 130-400 10^3/uL Mean Platelet Volume 11.9 9.0-12.2 fL Immature Granulocyte % (Auto) 1 % Neutrophils (%) (Auto) 79 H 42-75 % Lymphocytes (%) (Auto) 14 12-44 % Monocytes (%) (Auto) 6 0-12 % Eosinophils (%) (Auto) 1 0-10 % Basophils (%) (Auto) 0 0-10 % Neutrophils # (Auto) 8.7 H 1.8-7.8 10^3/uL Lymphocytes # (Auto) 1.5 1.0-4.0 10^3/uL Monocytes # (Auto) 0.6 0.0-1.0 10^3/uL Eosinophils # (Auto) 0.1 0.0-0.3 10^3/uL Basophils # (Auto) 0.0 0.0-0.1 10^3/uL Immature Granulocyte # (Auto) 0.1 0.0-0.1 10^3/uL Urine Color YELLOW Urine Clarity CLOUDY Urine pH 6.0 5-9 Urine Specific [place] 1.025 H 1.016-1.022 Urine Protein NEGATIVE NEGATIVE Urine Glucose (UA) NEGATIVE NEGATIVE Urine Ketones NEGATIVE NEGATIVE Urine Nitrite NEGATIVE NEGATIVE Urine Bilirubin NEGATIVE NEGATIVE Urine Urobilinogen 0.2 < = 1.0 MG/DL Urine Leukocyte Esterase 1+ H NEGATIVE Urine RBC (Auto) NEGATIVE NEGATIVE Urine RBC NONE /HPF Urine WBC 50-100 H /HPF Urine Squamous Epithelial Cells >50 H /HPF Urine Crystals NONE /LPF Urine Bacteria LARGE H /HPF Urine Casts NONE /LPF Urine Mucus NEGATIVE /LPF Urine Culture Indicated YES OB - Assessment/Plan/Diagnosis Assessment Assessment: induction of labor (at 39w5d) Admission Dx IUP at 39w5d on admission Admission Status: Inpatient Order (span 2 midnights) Reason for Inpatient Admission: Induction of labor Plan Plan: Induction Induction Method: per Misoprostol Protocol Other Plan -she desires only IV pain meds -oxytocin as needed OBEY BAH MD May 21, 2020 06:44
[2020-05-21] MEDS ORDERED: OXYTOCIN PRE-MIX DRIP 500 ML IV SCH ×2 (06:45→17:15)
[2020-05-21] MEDS: BUTORPHANOL INJ 2 MG/ML (STADOL) VIAL IV PRN ×2 (09:47→11:45)
[2020-05-21] MEDS ORDERED: BUPIVACAINE 0.25% 30 ML (SENSORCAINE) VIAL ONE (13:33)
[2020-05-21] MEDS ORDERED: fentaNYL INJECTION 100 MCG/2 ML AMP ONE (13:33)
[2020-05-21] MEDS ORDERED: LIDOCAINE PF 2% 5 ML (XYLOCAINE) VIAL ONE (13:33)
[2020-05-21] MEDS ORDERED: fentaNYL 2 mcg/ml BUPIVA 0.125 100 ML ONE (13:35)
[2020-05-21] MEDS ORDERED: LACTATED RINGERS 1,000 ML IV ONE ×2 (13:45)
[2020-05-21] MEDS ORDERED: ONDANSETRON 4 MG/2 ML (SDV) Z0FRAN IV PRN (13:45)
[2020-05-21] MEDS ORDERED: EPIDURAL (fentaNYL 2 MCG/ML BUPIVA 0.125%)100 ML BAG EPI PRN (13:45)
[2020-05-21] MEDS ORDERED: fentaNYL INJECTION 100 MCG/2 ML AMP INJ ONE (13:45)
[2020-05-21] MEDS ORDERED: NALOXONE 0.4 MG/ML 1 ML (NARCAN) VIAL IV PRN (13:45)
--- NOTE | 2020-05-21 17:14 | OB Labor & Delivery Record ---
L&D History Date of Service Date of Service: May 21, 2020 History Expected Date of Delivery: May 22, 2020 Gestational Age in Weeks: 39 Hx : 3 Hx Para: 3 Complications Events: Routine care Operative Indications (Cesarea: N/A-Vaginal Delivery Intrapartal Events: None L&D Stage1 Stage One Onset of Labor - Date: May 21, 2020 Onset of Labor - Time: 06:30 Monitors and Tracing Monitor Mode: Internal Heart Rate: 130 Monitor Accelerations: Uniform Monitor Decelerations: None Station: -2 Fpc Variability: Average (6-10) Short Term Variability: Present Presentation: Vertex Vital Signs VS - Last 72 Hours, by Label 05/20/20 05/20/20 05/20/20 05/20/20 19:55 20:08 22:15 23:15 Temp 36.0 36.0 36.3 Pulse 102 102 91 77 Resp 18 18 18 18 B/P (MAP) 113/64 (80) 111/59 (76) 111/65 (80) Pulse Ox 98 98 O2 Delivery Room Air Room Air Room Air Room Air 05/21/20 05/21/20 05/21/20 05/21/20 01:15 02:15 03:15 04:15 Temp 36.3 Pulse 84 81 82 94 Resp 18 18 18 18 B/P (MAP) 92/53 (66) 87/50 (62) 87/47 (60) 110/74 (86) O2 Delivery Room Air Room Air Room Air Room Air 05/21/20 05/21/20 05/21/20 05/21/20 05:15 06:30 07:15 07:30 Temp 36.2 Pulse 96 88 85 86 Resp 18 18 18 18 B/P (MAP) 102/62 (75) 120/61 (80) 115/63 (80) 109/64 (79) O2 Delivery Room Air Room Air Room Air Room Air 05/21/20 05/21/20 05/21/20 05/21/20 07:45 08:00 08:15 08:30 B/P (MAP) O2 Delivery Room Air Room Air Room Air Room Air 05/21/20 05/21/20 05/21/20 05/21/20 08:45 09:00 09:15 09:30 Pulse 86 86 86 84 Resp 18 18 18 18 B/P (MAP) 116/61 (79) 117/74 (88) 116/66 (83) 116/66 (83) O2 Delivery Room Air Room Air Room Air Room Air 05/21/20 05/21/20 05/21/20 05/21/20 09:45 10:00 10:15 10:30 Temp 36.2 Pulse 89 91 96 86 Resp 18 18 18 18 B/P (MAP) 114/58 (76) 109/55 (73) 113/66 (82) 105/65 (78) O2 Delivery Room Air Room Air Room Air Room Air 05/21/20 05/21/20 05/21/20 05/21/20 10:45 11:00 11:15 11:30 Pulse 78 88 88 85 Resp 18 18 18 18 B/P (MAP) 105/56 (72) 91/56 (68) 98/60 (73) 99/57 (71) O2 Delivery Room Air Room Air Room Air Room Air 05/21/20 05/21/20 05/21/20 05/21/20 11:45 12:00 12:15 12:30 Pulse 90 85 84 97 Resp 18 18 18 18 B/P (MAP) 97/53 (68) 99/52 (68) 95/52 (66) 110/63 (79) O2 Delivery Room Air Room Air Room Air Room Air 05/21/20 05/21/20 05/21/20 05/21/20 12:45 13:00 13:15 13:30 Pulse 87 87 107 Resp 18 18 18 B/P (MAP) 106/63 (77) 109/53 (71) 126/78 (94) O2 Delivery Room Air Room Air Room Air Room Air 05/21/20 05/21/20 05/21/20 05/21/20 13:45 13:50 13:53 13:56 Pulse 84 101 97 99 Resp 18 18 18 18 B/P (MAP) 114/58 (76) 122/57 (78) 122/58 (79) 114/61 (78) Pulse Ox 96 99 99 O2 Delivery Room Air Room Air Room Air Room Air 05/21/20 05/21/20 05/21/20 05/21/20 13:59 14:00 14:06 14:08 Pulse 100 100 94 94 Resp 18 18 18 18 B/P (MAP) 115/62 (79) 115/62 (79) 119/56 (77) 115/66 (82) Pulse Ox 99 98 98 O2 Delivery Room Air Room Air Room Air Room Air 05/21/20 05/21/20 05/21/20 05/21/20 14:11 14:15 14:20 14:23 Pulse 103 103 107 116 Resp 18 18 18 18 B/P (MAP) 111/59 (76) 112/62 (79) 112/58 (76) 110/60 (77) Pulse Ox 98 97 97 O2 Delivery Room Air Room Air Room Air Room Air 05/21/20 05/21/20 14:30 14:45 Pulse 118 125 Resp 18 18 B/P (MAP) 88/56 (67) 104/67 (79) Pulse Ox 99 O2 Delivery Room Air Room Air Signs of Distress by FHT Signs of Distress no Rupture of Membranes Spontaneous Ruture of Membrane: No Amniotic Membrane Rupture Time: 0630 Amniotic Membrane Fluid Desc.: Clear Induction/Anesthesia Epidural Cath Placement - Time: 1358 L&D Stage2 Stage Two Stage II Date: May 21, 2020 Stage II Time: 16:58 Monitors and Tracing Monitor Mode: Internal Heart Rate: 130 Monitor Accelerations: Uniform Monitor Decelerations: Variable Credit Advisor Variability: Average (6-10) Short Term Variability: Present Position: Left Occiput Anterior Presentation: Vertex Signs of Distress by FHT Signs of Distress no Cord Descript/Complications Cord Vessel Description: 3 Vessels Delivery Type Infant Delivery Method: Spontaneous Vaginal Anterior Shoulder: Left Episiotomy/Perineal Laceration Laceraction(s)/Extensions: No Condition of Infant Delivery 1 minute Comment: 8 5 minute Comment: 9 Condition of Infant Condition of Infant: Living Exam: No Observed Abnormalities Resuscitation Resuscitation: N/A - Spontaneous Resp L&D Stage3 Stage Three Stage III Date: May 21, 2020 Stage III Time: 17:03 Pictocin Pitocin Administration mu/min: 20 Pitocin ml/hr: 20 Pitocin Administration Comment: 1158 pit increased Placenta Delivery Placenta Delivery: Spontaneous Delivery Summary Summary Estimated blood loss (mL): 100 Condition of Delivery Examined: Cervix Examined Post Hemorrhage: No Intervention Required none OBEY BAH MD May 21, 2020 17:14
[2020-05-21] MEDS ORDERED: TETANUS,DIPTH,PERTUSS P/F (BOOSTRIX) 0.5 ML VIAL IM ONE (17:15)
[2020-05-21] MEDS ORDERED: WITCH HAZEL(TUCKS) 40 EA JAR TOP PRN (17:15)
[2020-05-21] MEDS ORDERED: MEASLES,MUMPS,RUBELLA 1 EA INJ SQ ONE (17:15)
[2020-05-21] MEDS ORDERED: BENZOCAINE/MENTHOL (DERMOPLAST) 60 ML CAN TP PRN (17:15)
[2020-05-21] MEDS: IBUPROFEN 600 MG (MOTRIN) TAB PO SCH ×2 (18:24→23:50)
[2020-05-21] MEDS: ACETAMINOPHEN 500 MG TAB (TYLENOL) PO SCH (20:11)
[2020-05-21] MEDS: DOCUSATE SODIUM 100 MG (COLACE) CAP PO SCH (20:11)
[2020-05-21] MEDS ORDERED: CATHETER FLUSH 10 ML SYR IV SCH (22:00)
[2020-05-22 00:30] VITALS: BP 114/69
[2020-05-22] MEDS: ACETAMINOPHEN 500 MG TAB (TYLENOL) PO SCH ×4 (03:30→21:58)
[2020-05-22 04:00] VITALS: BP 111/54
[2020-05-22 05:47] LABS: BASOPHILS % (AUTO) 0 % (0-10); EOSINOPHILS # (AUTO) 0.1 10^3/uL (0.0-0.3); EOSINOPHILS % (AUTO) 1 % (0-10); HEMATOCRIT 31 % (35-52); HEMOGLOBIN 10.1 g/dL (11.5-16.0); LYMPHOCYTES # (AUTO) 1.4 10^3/uL (1.0-4.0); LYMPHOCYTES % (AUTO) 11 % (12-44); MEAN CORPUSCULAR HEMOGLOBIN 29 pg (25-34); MEAN CORPUSCULAR HGB CONC 33 g/dL (32-36); MEAN CORPUSCULAR VOLUME 90 fL (80-99); MEAN PLATELET VOLUME 11.8 fL (9.0-12.2); MONOCYTES # (AUTO) 0.8 10^3/uL (0.0-1.0); MONOCYTES % (AUTO) 6 % (0-12); NEUTROPHILS # (AUTO) 10.6 10^3/uL (1.8-7.8); NEUTROPHILS % (AUTO) 82 % (42-75); PLATELET COUNT 234 10^3/uL (130-400)
[2020-05-22] MEDS: IBUPROFEN 600 MG (MOTRIN) TAB PO SCH ×3 (06:09→21:57)
--- NOTE | 2020-05-22 07:09 | Progress Note ---
Subjective Subjective/Events-last exam Doing well other than LBP (mild). Epidural was successful at labor and this concerned her a lot prior to delivery. Ibuprofen helping her LBP. Objective Exam Last Set of Vital Signs Vital Signs Date Time Temp Pulse Resp B/P (MAP) Pulse Ox O2 Delivery O2 Flow Rate FiO2 05/22/20 04:00 36.6 65 18 111/54 (73) Room Air 05/21/20 15:15 98 Capillary Refill : Less Than 3 Seconds I&O Intake and Output 05/22/20 00:00 Intake Total 2000 ml Balance 2000 ml Intake IV Total 2000 ml General: No Acute Distress Lungs: Clear to Auscultation Abdomen: Soft (with uterus firm) Results/Procedures Lab Laboratory Tests 05/22/20 05:00: White Blood Count 13.0H, Red Blood Count 3.44L, Hemoglobin 10.1L, Hematocrit 31L , Mean Corpuscular Volume 90, Mean Corpuscular Hemoglobin 29, Mean Corpuscular Hemoglobin Concent 33, Red Cell Distribution Width 14.4, Platelet Count 234, Mean Platelet Volume 11.8, Immature Granulocyte % (Auto) 1, Neutrophils (%) (Auto) 82H, Lymphocytes (%) (Auto) 11L, Monocytes (%) (Auto) 6, Eosinophils (%) (Auto) 1, Basophils (%) (Auto) 0, Neutrophils # (Auto) 10.6H, Lymphocytes # (Auto) 1.4, Monocytes # (Auto) 0.8, Eosinophils # (Auto) 0.1, Basophils # (Auto) 0.0, Immature Granulocyte # (Auto) 0.1 Microbiology 05/20/20 Urine Culture - Preliminary, Resulted Culture In Progress Assessment/Plan Assessment/Plan Admission Status: Inpatient Order (span 2 midnights) Assessment & Plan 1. S/P day 1 -hg stable -urine culture pending OBEY BAH MD May 22, 2020 07:09
[2020-05-22 08:30] VITALS: BP 110/60
[2020-05-22] MEDS: DOCUSATE SODIUM 100 MG (COLACE) CAP PO SCH ×2 (08:33→21:57)
--- NOTE | 2020-05-22 13:22 | Anesthesia-Regional Post-Op ---
Regional Patient Condition Mental Status: Alert, Oriented x3 Circulation: Same as Pre-Op Headache: Absent Sensation: Full Recovery Motor Block: Absent Post Op Complications Complications None Follow Up Care/Instructions Patient Instructions None needed. Anesthesia/Patient Condition Patient is doing well, no complaints other than a minimally sore back which is to be expected, stable vital signs, no apparent adverse anesthesia problems. SURAJ CALVERT DO May 22, 2020 13:22
[2020-05-22 14:35] VITALS: BP 128/59
[2020-05-22 21:57] VITALS: BP 111/73
[2020-05-23 04:54] VITALS: BP 111/59
[2020-05-23] MEDS: IBUPROFEN 600 MG (MOTRIN) TAB PO SCH ×3 (04:54→12:01)
[2020-05-23] MEDS: ACETAMINOPHEN 500 MG TAB (TYLENOL) PO SCH ×3 (04:54→12:01)
[2020-05-23] MEDS ORDERED: IBUP-844 PO (07:09)
--- NOTE | 2020-05-23 07:11 | Discharge Inst-Women's Service ---
Discharge Inst-Women's Serv Depart Medication/Instructions New, Converted or Re-Newed RX: Call to Patients Pharmacy ([facility]) Problems Reviewed?: Yes Consults/Follow Up Additional Follow Up: Yes (Dr Bah in 6 weeks.) Activity Activity: Activity as Tolerated Driving Instructions: You May Drive Nothing Inside Vagina: No [place] (for 6 weeks.) Diet Discharge Diet: Regular Diet Return to The Hospital For: as below Symptoms to Report to : Bleeding Excessive, Pain Increased, Fever Over 101 Degrees F, Vaginal Discharge Foul For Any Problems or Questions: Contact Your Physician OBEY BAH MD May 23, 2020 07:10
--- NOTE | 2020-05-23 07:17 | Discharge Summary ---
Diagnosis/Chief Complaint Date of Admission May 20, 2020 at 19:22 Date of Discharge May 23, 2020 Admission Diagnosis Admission Diagnosis 1. Intrauterine at 39 weeks gestation Discharge Diagnosis 1. Intrauterine at 39 weeks gestation Chief Complaint/HPI Chief Complaint/HPI 30-year-old 5 now term 3 who initially presents to labor and delivery during the evening of May 20 for induction of labor at 39 weeks and 5 days gestation. Her care was essentially unremarkable and was through [facility]. She did not admit to any significant contractions on admission her GBS status was negative at 36 weeks vaginally. Discharge Summary-OBS Procedures 1. Epidural per anesthesia 2. Spontaneous vaginal delivery Discharge Physical Examination Allergies: Coded Allergies: sulfamethoxazole (Verified Allergy, Unknown, 11/11/19) trimethoprim (Verified Allergy, Unknown, 11/11/19) Vitals & I&Os Vital Sign - Last 12Hours Date Time Temp Pulse Resp B/P (MAP) Pulse Ox O2 Delivery O2 Flow Rate FiO2 05/23/20 04:54 36.3 73 18 111/59 (76) 97 Room Air General Appearance: No Acute Distress Respiratory: Clear to Auscultation Cardiovascular: Regular Rate Abdominal: Soft (with uterus firm) Skin: No Rashes Psych/Mental Status: Mental Status NL Hospital Course Was the Problem List Reviewed?: Yes patient was admitted during the evening of May 20, 2020 for Cytotec induction. Patient tolerated the Cytotec well and was dilated to 2 cm in the branch specialist of May 21, 2020. She underwent amniotomy with placement of scalp electrode at that time. Fluid was noted to be clear. She also received epidural per anesthesia. Pitocin augmentation was required to achieve adequate contractions ultimately leading to full dilation and vaginal . Patient delivered on May 21, 2020 and a term viable female with Apgars of 8 at 1 minute and 9 at 5 minutes. See labor and delivery note for full details. Following delivery she underwent routine care orders. She was noted to have no complications during the remainder of hospital stay. She had uterine cramping but this was controlled with ibuprofen 600 mg. She tolerated regular diet and was ambulatory. She had no shortness of breath or leg pain. Her hemoglobin in the morning of May 22, 2020 was noted to be 10.1 compared to initial 11.8. A urine culture was performed during the course of her stay and had colonization as a final report. She was not given antibiotics on dismissal. She was felt ready for dismissal during the morning of May 23, 2020 with all questions answered. Labs Microbiology 05/20/20 Urine Culture - Final, Complete Gram Pos Mixed Bacterial Vianca Discharge Instructions to patient/family Please see electronic discharge instructions given to patient. Discharge Medications Reviewed and agree with Discharge Medication list on patient's Discharge Instruction sheet OBEY BAH MD May 23, 2020 07:17
[2020-05-23 07:35] VITALS: BP 117/66
[2020-05-23] MEDS: DOCUSATE SODIUM 100 MG (COLACE) CAP PO SCH (12:01)
== END 2020-05-23 14:00 | disposition home or self-care (01) | DRG 807 ==
LOC: LDRP 19:22 → EEVIPCON 19:22 → LDRP 05-21 21:46
PROVIDERS: ADMIT Family Medicine; ATTEND Family Medicine
PROC: 10E0XZZ Delivery of Products of Conception, External Approach (ICD-10-PCS; principal; 2020-05-21)
DX: O80 Encounter for full-term uncomplicated delivery (principal); Z37.0 Single live birth; Z3A.39 39 weeks gestation of pregnancy; Z20.822 Contact with and (suspected) exposure to COVID-19
CPT/HCPCS: 36415; 81000; 85025; 86850; 86900; 86901; 87088; 87635

== ENCOUNTER 2020-08-07 18:29 | Emergency (ER) | payer MEDICAID ==
[~2020-08-07] VITALS: Ht 170 cm; Wt 91.0 kg
[~2020-08-07 18:29] MED LIST changes: +IBUP-844 PO
[2020-08-07] MEDS ORDERED: ACETAMINOPHEN 325 MG TABLET PO STA (19:01)
[2020-08-07] MEDS ORDERED: TETANUS,DIPTH,PERTUSS P/F (BOOSTRIX) 0.5 ML VIAL IM ONE (19:15)
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
[2020-08-07 20:03] VITALS: BP 115/77
== END 2020-08-07 20:03 | disposition home or self-care (01) ==
LOC: EDUNIT# 18:29 → ER 18:32
DX: S06.0X0A Concussion without loss of consciousness, initial encounter (principal); F17.210 Nicotine dependence, cigarettes, uncomplicated; R40.2410 Glasgow coma scale score 13-15, unspecified time; Z88.2 Allergy status to sulfonamides; Z88.1 Allergy status to other antibiotic agents; Z23 Encounter for immunization; V89.2XXA Person injured in unspecified motor-vehicle accident, traffic, initial encounter
CPT/HCPCS: 71046; 72070; 90715

== ENCOUNTER 2020-09-26 18:53 | Emergency (ER) | payer MEDICAID ==
[~2020-09-26] VITALS: Ht 170 cm; Wt 92.0 kg
--- NOTE | 2020-09-26 19:13 | ED GU-Female ---
General Stated Complaint: BACK PAIN / BLOOD IN URINE Source: patient Exam Limitations: no limitations (JOE JULIAN APRN) History of Present Illness Date Seen by Provider: Sep 26, 2020 Time Seen by Provider: 19:13 Initial Comments This is a well appearing 30 yo female who presented to the ER via POV with c/o blood in urine and pain in her bilateral flank region. States pain is intermittent, 8/10, sharp with a waxing/waning presentation. States she has seen [facility] and they told her that her urine looked ok other than some blood. She is concerned she has something wrong with her kidneys because she use to get kidney infections when she was a kid all the time. States she is not sexually active. Last menstrual period was beginning of August. No fever, chills, cough, shortness of breath, nausea, vomiting, diarrhea. Has recently been treated with two doses of flagyl for BV. States discharge is gone, but thinks the medication may not have helped. (JOE JULIAN APRN) Allergies and Home Medications Allergies Coded Allergies: sulfamethoxazole (Verified Allergy, Unknown, 11/11/19) trimethoprim (Verified Allergy, Unknown, 11/11/19) Home Medications Albuterol Sulfate 18 Gm Hfa.aer.ad, 2 PUFF IH Q4H PRN for SHORTNESS OF BREATH Prescribed by: ROSA CASEY on 02/16/20 0705 Cyclobenzaprine HCl 10 Mg Tablet, 10 MG PO Q8H PRN for SPASMS Prescribed by: YENY LEÓN on 09/26/202125 Ibuprofen 600 Mg Tablet, 600 MG PO Q6HR Prescribed by: OBEY BAH on 05/23/20 0709 Naproxen 500 Mg Tablet.dr, 500 MG PO BID Prescribed by: YENY LEÓN on 09/26/202125 Vit No.124/Iron/FA 1 Each Tablet, 1 EACH PO DAILY, (Reported) Patient Home Medication List Home Medication List Reviewed: Yes (JOE JULIAN APRN) Review of Systems Review of Systems Constitutional: see HPI EENTM: no symptoms reported Respiratory: no symptoms reported Cardiovascular: no symptoms reported Gastrointestinal: see HPI Genitourinary: see HPI; denies burning, denies discharge, denies frequency : No LMP: August 13, 2020 Musculoskeletal: no symptoms reported Skin: no symptoms reported Psychiatric/Neurological: No Symptoms Reported Endocrine: No Symptoms Reported Hematologic/Lymphatic: No Symptoms Reported (JOE JULIAN APRN) Past Puswcfi-Vwfdlx-Rialil Hx Patient Social History Type Used: Cigarettes 2nd Hand Smoke Exposure: Yes Recent Hopitalizations: No (JOE JULIAN APRN) Immunizations Up To Date Tetanus Booster (TDap): Unknown PED Vaccines UTD: Yes (JOE JULIAN APRN) Seasonal Allergies Seasonal Allergies: No (JOE JULIAN APRN) Past Medical History Surgeries: No Respiratory: No Cardiac: No Neurological: No Genitourinary: No Gastrointestinal: No Musculoskeletal: No Endocrine: No HEENT: No Cancer: No Psychosocial: No Integumentary: No Blood Disorders: No (JOE JULIAN APRN) Family Medical History No Pertinent Family Hx (JOE JULIAN APRN) Physical Exam Vital Signs Vital Signs - First Documented 09/26/20 19:12 Temp 36.9 Pulse 102 Resp 18 B/P (MAP) 121/91 (101) Pulse Ox 95 O2 Delivery Room Air (MAU,YENY K DO) Vital Signs Capillary Refill : (JOE JULIAN APRN) Height, Weight, BMI Height: '" Weight: lbs. oz. kg; 31.00 BMI Method: General Appearance: WD/WN, no apparent distress HEENT: PERRL/EOMI, normal ENT inspection, pharynx normal Neck: full range of motion, normal inspection Cardiovascular: regular rate, rhythm, no murmur Respiratory: lungs clear, normal breath sounds Gastrointestinal: normal bowel sounds, soft, other (suprapubic tenderness with deep palpation. ) Back: normal inspection, no CVA tenderness, no vertebral tenderness Extremities: normal range of motion, non-tender, normal inspection Neurologic/Psychiatric: no motor/sensory deficits, alert, normal mood/affect, oriented x 3 Skin: normal color, warm/dry (JOE JULIAN APRN) Progress/Results/Core Measures Suspected Sepsis SIRS Temperature: Pulse: Respiratory Rate: Laboratory Tests 09/26/20 19:47: White Blood Count 7.1 Blood Pressure / Mean: Laboratory Tests 09/26/20 19:47: Creatinine 0.67, Platelet Count 280, Total Bilirubin 0.3 (JOE JULIAN APRN) Results/Orders Lab Results Laboratory Tests Test 09/26/20 19:15 09/26/20 19:47 Range/Units Urine Color YELLOW Urine Clarity CLEAR Urine pH 6.0 5-9 Urine Specific [place] 1.025 H 1.016-1.022 Urine Protein NEGATIVE NEGATIVE Urine Glucose (UA) NEGATIVE NEGATIVE Urine Ketones NEGATIVE NEGATIVE Urine Nitrite NEGATIVE NEGATIVE Urine Bilirubin NEGATIVE NEGATIVE Urine Urobilinogen 0.2 < = 1.0 MG/DL Urine Leukocyte Esterase NEGATIVE NEGATIVE Urine RBC (Auto) TRACE-I NEGATIVE Urine RBC 0-2 /HPF Urine WBC NONE /HPF Urine Squamous Epithelial Cells 10-25 H /HPF Urine Crystals NONE /LPF Urine Bacteria NEGATIVE /HPF Urine Casts NONE /LPF Urine Mucus NEGATIVE /LPF Urine Culture Indicated NO White Blood Count 7.1 4.3-11.0 10^3/uL Red Blood Count 4.48 3.80-5.11 10^6/uL Hemoglobin 13.3 11.5-16.0 g/dL Hematocrit 41 35-52 % Mean Corpuscular Volume 91 80-99 fL Mean Corpuscular Hemoglobin 30 25-34 pg Mean Corpuscular Hemoglobin Concent 33 32-36 g/dL Red Cell Distribution Width 13.2 10.0-14.5 % Platelet Count 280 130-400 10^3/uL Mean Platelet Volume 10.7 9.0-12.2 fL Immature Granulocyte % (Auto) 0 % Neutrophils (%) (Auto) 67 42-75 % Lymphocytes (%) (Auto) 25 12-44 % Monocytes (%) (Auto) 7 0-12 % Eosinophils (%) (Auto) 1 0-10 % Basophils (%) (Auto) 0 0-10 % Neutrophils # (Auto) 4.8 1.8-7.8 10^3/uL Lymphocytes # (Auto) 1.8 1.0-4.0 10^3/uL Monocytes # (Auto) 0.5 0.0-1.0 10^3/uL Eosinophils # (Auto) 0.0 0.0-0.3 10^3/uL Basophils # (Auto) 0.0 0.0-0.1 10^3/uL Immature Granulocyte # (Auto) 0.0 0.0-0.1 10^3/uL Sodium Level 141 135-145 MMOL/L Potassium Level 3.7 3.6-5.0 MMOL/L Chloride Level 105 98-107 MMOL/L Carbon Dioxide Level 24 21-32 MMOL/L Anion Gap 12 5-14 MMOL/L Blood Urea Nitrogen 7 7-18 MG/DL Creatinine 0.67 0.60-1.30 MG/DL Estimat Glomerular Filtration Rate > 60 BUN/Creatinine Ratio 10 Glucose Level 84 70-105 MG/DL Calcium Level 9.4 8.5-10.1 MG/DL Corrected Calcium 9.2 8.5-10.1 MG/DL Total Bilirubin 0.3 0.1-1.0 MG/DL Aspartate Amino Transf (AST/SGOT) 20 5-34 U/L Alanine Aminotransferase (ALT/SGPT) 54 0-55 U/L Alkaline Phosphatase 77 40-136 U/L Total Protein 7.3 6.4-8.2 GM/DL Albumin 4.3 3.2-4.5 GM/DL (MAU,YENY K DO) My Orders Orders - MAU,YENY K DO Rx-Cyclobenzaprine Tablet (Rx-Flexeril T (09/26/20 21:26) Rx-Naproxen (Rx-Naprosyn) (09/26/20 21:26) (MAU,YENY K DO) Medications Given in ED Current Medications Medications Dose Ordered Sig/Mellissa Route Start Time Stop Time Status Last Admin Dose Admin Ketorolac Tromethamine 15 mg ONCE ONCE IVP 09/26/20 19:45 09/26/20 19:46 DC 09/26/20 19:57 15 MG Ondansetron HCl 4 mg ONCE ONCE IVP 09/26/20 19:45 09/26/20 19:46 DC 09/26/20 19:57 4 MG (MAU,YENY K DO) Vital Signs/I&O 09/26/20 19:12 Temp 36.9 Pulse 102 Resp 18 B/P (MAP) 121/91 (101) Pulse Ox 95 O2 Delivery Room Air (MAU,YENY K DO) Vital Signs/I&O Capillary Refill : (JOE JULIAN APRN) Progress Note : Progress Note 2122--PT ANXIOUS TO GO, XRAY REPORT PENDING, 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 I REVIEWED TEST RESULTS WITH PT, PT REPORTS SHE CANNOT STAY LONGER FOR CT SCAN (MAU,YENY K DO) Diagnostic Imaging Comments ABDOMEN XRAYS--PER RADIOLOGIST REPORT AT 2129 IMPRESSION: Punctate radiopaque densities overlying the bladder bilaterally could represent small renal stones, possibly within the ureterovesicular junctions. No priors are available for comparison. Reviewed: Reviewed by Me (YENY LEÓN DO) Departure Impression Primary Impression: Back pain Additional Impression: REPORTED HEMATURIA Disposition: HOME, SELF-CARE Condition: Stable Departure-Patient Inst. Decision time for Depature: 21:23 (YENY LEÓN DO) Referrals: [facility] (PCP/Family) Primary Care Physician Patient Instructions: Blood in Urine (Hematuria), Adult ED, Low Back Pain ED Add. Discharge Instructions: LOTS OF CLEAR LIQUIDS MOIST HEAT TO LOW BACK FOLLOW UP WITH YOUR DR IN 2-3 DAYS IF NO BETTER Scripts Naproxen (Naproxen) 500 Mg Tablet.dr 500 MG PO BID, #20 TAB Prov: YENY LEÓN DO 09/26/20 Cyclobenzaprine HCl (Cyclobenzaprine HCl) 10 Mg Tablet 10 MG PO Q8H PRN for SPASMS, #15 TAB 0 Refills Prov: YENY LEÓN DO 09/26/20 JOE JULIAN ILLUMINATING ENGINEER Sep 26, 2020 19:13 YENY LEÓN DO Sep 26, 2020 21:26
[2020-09-26 19:25] LABS: BILIRUBIN,URINE NEGATIVE (NEGATIVE); CLARITY,URINE CLEAR; COLOR,URINE YELLOW; GLUCOSE, URINE (UA) NEGATIVE (NEGATIVE); KETONES,URINE NEGATIVE (NEGATIVE); LEUKOCYTE ESTERASE ,URINE NEGATIVE (NEGATIVE); NITRITE,URINE NEGATIVE (NEGATIVE); PROTEIN,URINE NEGATIVE (NEGATIVE)
[2020-09-26 19:32] LABS: BACTERIA,URINE NEGATIVE /HPF; RBC,URINE 0-2 /HPF
[2020-09-26] MEDS ORDERED: ONDANSETRON 4 MG/2 ML (SDV) Z0FRAN IVP ONE (19:45)
[2020-09-26] MEDS ORDERED: KETOROLAC 30 MG/ML VIAL IVP ONE (19:45)
[2020-09-26 19:55] LABS: BASOPHILS % (AUTO) 0 % (0-10); EOSINOPHILS % (AUTO) 1 % (0-10); HEMATOCRIT 41 % (35-52); HEMOGLOBIN 13.3 g/dL (11.5-16.0); LYMPHOCYTES # (AUTO) 1.8 10^3/uL (1.0-4.0); LYMPHOCYTES % (AUTO) 25 % (12-44); MEAN CORPUSCULAR HEMOGLOBIN 30 pg (25-34); MEAN CORPUSCULAR HGB CONC 33 g/dL (32-36); MEAN CORPUSCULAR VOLUME 91 fL (80-99); MEAN PLATELET VOLUME 10.7 fL (9.0-12.2); MONOCYTES # (AUTO) 0.5 10^3/uL (0.0-1.0); MONOCYTES % (AUTO) 7 % (0-12); NEUTROPHILS # (AUTO) 4.8 10^3/uL (1.8-7.8); NEUTROPHILS % (AUTO) 67 % (42-75); PLATELET COUNT 280 10^3/uL (130-400); WHITE BLOOD COUNT 7.1 10^3/uL (4.3-11.0)
[2020-09-26 20:06] LABS: ALBUMIN 4.3 GM/DL (3.2-4.5); CHLORIDE 105 MMOL/L (98-107); POTASSIUM 3.7 MMOL/L (3.6-5.0); SODIUM 141 MMOL/L (135-145)
[2020-09-26 20:07] LABS: CALCIUM 9.4 MG/DL (8.5-10.1)
[2020-09-26 20:08] LABS: GLUCOSE 84 MG/DL (70-105); TOTAL PROTEIN 7.3 GM/DL (6.4-8.2)
[2020-09-26 20:09] LABS: CARBON DIOXIDE 24 MMOL/L (21-32)
[2020-09-26 20:10] LABS: BILIRUBIN,TOTAL 0.3 MG/DL (0.1-1.0)
[2020-09-26 20:12] LABS: ALKALINE PHOSPHATASE 77 U/L (40-136); CREATININE SERUM 0.67 MG/DL (0.60-1.30); GFR ESTIMATED > 60
[2020-09-26 20:13] LABS: BUN/CREATININE RATIO 10
[2020-09-26 20:15] LABS: ALANINE AMINOTRANSFERASE 54 U/L (0-55)
[2020-09-26] MEDS ORDERED: NAPR500T8 PO (21:26)
[2020-09-26] MEDS ORDERED: RX-NAPROXEN (NAPROSYN) 250 MG TAB PPK#4 PO STA (21:26)
[2020-09-26] MEDS ORDERED: RX-CYCLOBENZAPRINE 10 MG (FLEXERIL) TAB PPK#3 PO STA (21:26)
[2020-09-26] MEDS ORDERED: CYCL10TA9 PO (21:26)
--- NOTE | 2020-09-26 21:27 | Diagnostic Imaging Report ---
EXAM: ABDOMEN/KUB 1VIEW INDICATION: Flank pain. Suspected kidney stone. COMPARISON: None. FINDINGS: Punctate radiopaque densities overlying the bladder bilaterally could represent renal stones, possibly within the ureterovesicular junctions. No radiopaque densities overlying the renal shadows. Nonspecific bowel gas pattern. IMPRESSION: Punctate radiopaque densities overlying the bladder bilaterally could represent small renal stones, possibly within the ureterovesicular junctions. No priors are available for comparison. Dictated by: Dictated on workstation # [id number]
[2020-09-26 21:35] VITALS: BP 115/90
== END 2020-09-26 21:35 | disposition home or self-care (01) ==
LOC: EDUNIT# 18:53 → ER 18:54
DX: M54.9 Dorsalgia, unspecified (principal); R31.9 Hematuria, unspecified; Z77.22 Contact with and (suspected) exposure to environmental tobacco smoke (acute) (chronic)
CPT/HCPCS: 36415; 74018; 80053; 81000; 84703; 85025; 87210

== ENCOUNTER 2022-04-14 00:14 | Emergency (ER) | payer MEDICAID ==
[~2022-04-14] VITALS: Ht 167 cm; Wt 95.0 kg
[~2022-04-14 00:14] MED LIST changes: +CYCL10TA25 PO; +NAPR500T8 PO
[2022-04-14 00:18] VITALS: BP 124/68
[2022-04-14] MEDS ORDERED: DOXYCYCLINE 100 MG (VIBRAMYCIN) TABLET PO STA (00:24)
[2022-04-14] MEDS ORDERED: metroNIDAZOLE 500 MG (FLAGYL) TAB PO ONE (00:30)
[2022-04-14] MEDS ORDERED: cefTRIAXone 500 MG/5 ML ML IM ONE (00:30)
[2022-04-14] MEDS ORDERED: LIDOCAINE 1% INJ 20 ML VIAL INJ ONE (00:30)
[2022-04-14] MEDS ORDERED: METR-145 PO ×2 (00:33→00:52)
[2022-04-14] MEDS ORDERED: DOXY100T2 PO ×2 (00:33→00:52)
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
== END 2022-04-14 00:52 | disposition home or self-care (01) ==
LOC: EDUNIT# 00:14 → ER 00:15
DX: T74.21XA Adult sexual abuse, confirmed, initial encounter (principal); Z88.2 Allergy status to sulfonamides
CPT/HCPCS: 99284

== ENCOUNTER → 2022-07-14 | Outpatient (CLI) | payer MEDICAID ==
[~2022-07-14] MED LIST changes: +DOXY100T2 PO; +METR-145 PO
--- NOTE | 2022-07-14 16:54 | Diagnostic Imaging Report ---
EXAMINATION: Two-view foot radiograph TECHNIQUE: AP and lateral views of the foot are obtained. HISTORY: Left foot pain and bruising. COMPARISON: None available. FINDINGS: Possible acute avulsion fracture at the calcaneus. Joint spaces are maintained. No unexpected radiopaque foreign bodies. No other acute compression deformities. IMPRESSION: Questionable avulsion fracture versus accessory ossicle about the lateral aspect of the calcaneus. Recommend correlation with point tenderness along the lateral aspect of the foot. Could consider CT of the foot for further assessment if clinically warranted. Dictated by: Dictated on workstation # [id number]
== END ==
LOC: RAD 13:50
PROVIDERS: ATTEND Nurse Practitioner Family
DX: M79.672 Pain in left foot (principal)
CPT/HCPCS: 73620

== ENCOUNTER → 2022-11-04 | Outpatient (CLI) | payer MEDICAID ==
--- NOTE | 2022-11-04 16:10 | Diagnostic Imaging Report ---
PROCEDURE: Pelvic comp/transvaginal sonogram. TECHNIQUE: Complete transabdominal and transvaginal pelvic ultrasound was performed. In addition, limited pelvic Doppler was performed. INDICATION: Lower abdominal pain and irregular menses. FINDINGS: The uterus measures 9.7 x 4.3 x 5.2 cm. The endometrium is 6 mm in thickness. No myometrial mass is identified. The right ovary measures 3.2 x 2.4 x 1.8 cm. The right ovary does contain an approximately 19 mm cyst. There is blood flow to the right ovary. The left ovary cannot be visualized due to overlying bowel gas. No free fluid is detected. IMPRESSION: 19 mm right ovarian cyst. No other significant abnormality is detected. Dictated by: Dictated on workstation # [id number]
== END ==
LOC: RAD 14:00
PROVIDERS: ATTEND Nurse Practitioner Family
DX: N83.201 Unspecified ovarian cyst, right side (principal); N92.6 Irregular menstruation, unspecified
CPT/HCPCS: 76830; 76856